=== PATIENT | female | born 1960 | race Two or more races ===

== ENCOUNTER 2021-07-30 20:24 | Emergency (ER) | payer BC, MEDICARE ==
[~2021-07-30] VITALS: Ht 170.2 cm; Wt 83.9 kg
--- NOTE | 2021-07-30 20:55 | NUR ---
Patient walked into ER c/o constant abdominal pain for over a month. Patient denies n/v and diarrhea. Patient is A/Ox4, no CP, no SOB, no distress noted.
[2021-07-30] MEDS ORDERED: FURO-152 PO (21:12)
[2021-07-30 21:47] LABS: HEMATOCRIT 38.7 % (31.2-41.9); MEAN CORPUSCULAR HEMOGLOBIN 29.6 uug (24.7-32.8); MEAN CORPUSCULAR VOLUME 88.2 fL (75.5-95.3); PLATELET COUNT (AUTO) 228 K/uL (179-408)
[2021-07-30 21:52] LABS: CREATININE 0.8 mg/dL (0.6-1.3); POTASSIUM 3.6 mmol/L (3.5-5.1)
[2021-07-30 22:06] LABS: BILIRUBIN,DIRECT 0.1 mg/dL (0.0-0.2); BILIRUBIN,TOTAL 0.3 mg/dL (0.2-1.0); TOTAL PROTEIN, SERUM 7.2 g/dL (6.4-8.2)
[2021-07-30 23:14] LABS: *BILIRUBIN,URIN NEGATIVE (NEGATIVE); *BLOOD, URINE 1+ (NEGATIVE); *CLARITY,URINE CLEAR (CLEAR); *COLOR,URINE LIGHT YELLOW (YELLOW); *KETONES,URINE NEGATIVE (NEGATIVE); *UROBILINOGEN,URINE 0.2 E.U./dl (NORMAL); LEUKOCYTE ESTERASE ,URINE NEGATIVE (NEGATIVE); NITRITE, URINE NEGATIVE (NEGATIVE); PH,URINE 6.5 (5.0-8.0); UGLUCOSE NEGATIVE (NEGATIVE)
[2021-07-30 23:25] LABS: BACTERIA,URINE NONE SEEN /HPF (NONE SEEN); RBC,URINE 0-3 /HPF (0-3); SQUAMOUS EPITHELIAL CELL,UR MODERATE /HPF (NONE SEEN); WBC,URINE NONE SEEN /HPF (0-3)
--- NOTE | 2021-07-30 23:45 | NUR ---
Female auto specialty services manager accompanied female patient for Dr Harmon on pelvic exam
[2021-07-30] MEDS ORDERED: HYDR-3980 PO (23:52)
[2021-07-31] MEDS ORDERED: HYDROCODONE/APAP 10-325 MG TABLET PO ONE
[2021-07-31] MEDS ORDERED: HYDROCODONE/APAP 10-325 MG TABLET ONE (00:10)
--- NOTE | 2021-07-31 00:59 | NUR ---
Patient given written and verbal discharge instructions. Patient verbalizes understanding of instructions. Patient is ambulatory with steady gait. Refuses offer of custodial placement. Patient given list of available shelters in surrounding area. PT ambulated with steady gait. denies pain. no SOB. no chest pain. AOx4
[2021-07-31 01:02] VITALS: BP 139/89
== END 2021-07-31 01:03 | disposition home or self-care (01) ==
LOC: ER 20:30
DX: G89.29 Other chronic pain (principal); R10.9 Unspecified abdominal pain; Z59.00 Homelessness unspecified; Z20.822 Contact with and (suspected) exposure to COVID-19
CPT/HCPCS: 36415; 76700; 76856; 83690; 85025; A4663